=== PATIENT | female | born 1975 | race Caucasian/White ===

== ENCOUNTER 2020-12-11 23:55 | Inpatient (IN) | payer OTHER ==
[~2020-12-11] VITALS: Ht 162.6 cm; Wt 73.0 kg
[~2020-12-11 23:55] MED LIST: ACEBUTCAFT PO; ALBU90OI INH; Fluocinonide60 ML TP; LEVSOD125 PO; META800 PO; ONDA4 PO; TOPI50 PO
[2020-12-12 01:00] LABS: BASOPHILS ABSOLUTE AUTO 0.07 K/mm3 (0.00-0.23); BASOPHILS PERCENT AUTO 1 % (0-2); EOSINOPHILS ABSOLUTE AUTO 0.16 K/mm3 (0.00-0.68); EOSINOPHILS PERCENT AUTO 2 % (0-6); Hematocrit 36.3 % (33.0-51.0); Hemoglobin 11.4 g/dL (11.5-16.0); IMMATURE GRAN ABSOLUTE AUTO 0.02 K/mm3 (0.00-0.10); IMMATURE GRAN PERCENT AUTO 0 % (0-1); LYMPHOCYTES ABSOLUTE AUTO 2.28 K/mm3 (0.84-5.20); LYMPHOCYTES PERCENT AUTO 33 % (21-46); MONOCYTES ABSOLUTE AUTO 0.47 K/mm3 (0.16-1.47); MONOCYTES PERCENT AUTO 7 % (4-13); Mean Corpuscular HGB 27.1 pg (26.0-34.0); Mean Corpuscular HGB Conc 31.4 g/dL (31.5-36.5); Mean Corpuscular Volume 86 fL (80-100); NEUTROPHILS PERCENT AUTO 57 % (41-73); RDW Coefficient Variation 14.5 % (11.7-14.2); RDW Standard Deviation 45.4 fL (35.1-46.3)
[2020-12-12 01:01] LABS: Mean Platelet Volume 9.9 fL (9.1-12.4); Platelet Count 275 K/mm3 (150-400)
[2020-12-12 01:24] LABS: Alanine Aminotransfer (ALT/SGP 13 U/L (12-78); Albumin, Blood 3.4 g/dL (3.4-5.0); Alk Phos 34 U/L (50-136); Anion Gap 7 mmol/L (6-16); Aspartate Aminotrans (AST/SGOT 19 U/L (12-37); Bilirubin, Total 0.3 mg/dL (0.1-1.0); Blood Urea Nitrogen 20 mg/dL (8-24); Bun/Creatinine Ratio 25.7 (12.0-20.0); CO2, Blood 16 mmol/L (21-32); Calcium, Blood 7.6 mg/dL (8.5-10.1); Chloride, Blood 115 mmol/L (98-108); Creatinine, Blood 0.78 mg/dL (0.40-1.00); Globulin, Blood 3.4 g/dL (2.2-4.0); Glomerular Filtration Rate >60 (60-); Glucose, Blood 95 mg/dL (70-99); Potassium, Blood 3.7 mmol/L (3.5-5.5); Sodium, Blood 138 mmol/L (136-145); Total Protein, Blood 6.8 g/dL (6.4-8.2)
[2020-12-12 04:22] LABS: D-Dimer, Quantitative 0.49 mg/L FEU (0.00-0.52)
[2020-12-12] MEDS ORDERED: BREO ELLIPTA 21 EAC1 INH (09:12)
[2020-12-12] MEDS ORDERED: ESZO1 PO (09:13)
[2020-12-12] MEDS ORDERED: FAMO40 PO (09:34)
[2020-12-12] MEDS ORDERED: FLUO.025TO TOP (09:35)
[2020-12-12] MEDS ORDERED: LEVSOD100 PO (09:46)
[2020-12-12] MEDS ORDERED: LORA.5 PO (09:47)
[2020-12-12] MEDS ORDERED: NORT10 PO (09:47)
[2020-12-12] MEDS ORDERED: META800 PO (09:47)
[2020-12-12] MEDS ORDERED: OMEP20ER PO (09:48)
[2020-12-12] MEDS ORDERED: ONDA4ODT SL (09:50)
[2020-12-12] MEDS ORDERED: Adipex-P37.5 MG PO (09:51)
[2020-12-12] MEDS ORDERED: PRED FORTE5 ML BOTHEYES (09:52)
[2020-12-12] MEDS ORDERED: Ranitidine HCl150 M1 PO (09:52)
[2020-12-12] MEDS ORDERED: RIZATRIPTAN10 MG SL (09:55)
[2020-12-12] MEDS ORDERED: TRANSDERM-SCOP1 EAC5 TD (09:55)
[2020-12-12] MEDS ORDERED: PSEUDOEPHEDRINE30 M1 PO (09:56)
[2020-12-12] MEDS ORDERED: DICL25ER PO (09:58)
[2020-12-12 10:30] LABS: Creatine Kinase MB 2.1 ng/mL (0.0-3.6); Creatine Kinase MB Index 1.7 (0.0-4.0)
[2020-12-12 10:41] LABS: Troponin I 0.956 ng/mL (0.000-0.040)
[2020-12-12 17:06] LABS: Creatine Kinase MB Index 2.7 (0.0-4.0)
[2020-12-12 17:20] LABS: Troponin I 1.23 ng/mL (0.000-0.040)
--- NOTE | 2020-12-12 17:48 | NUR ---
SHIFT SUMMARY PT COMPLAINED OF CHEST PAIN THIS MORNING, CARDIOLOGY CONSULT CALLED TO DR. COON AND PHYSICIAN AWARE. HEPARIN AND MAINTENANCE FLUIDS RUNNING PER EMAR. PT TAKEN TO MANAGER SITE, HEPARIN STOPPED FOR PROCEDURE. PT RETURNED FROM PROCEDURE WITH TR BAND AND ARMBOARD IN PLACE. NO BLEEDING NOTED, HEMATOMA NOTED PROXIMAL TO TR BAND. TR BAND RECOVERED, NO ACUTE EVENTS THE REST OF SHIFT, VSS. PT ALERT AND ORIENTED, ABLE TO AMBULATE INDEPENDENTLY IN ROOM.
--- NOTE | 2020-12-12 18:17 | NUR ---
UPDATE SOME DISCHARGE NOTED FROM RADIAL SITE, AIR REAPPLIED INTO TR BAND, BLEEDING STOPPED, WCTM.
--- NOTE | 2020-12-12 22:04 | NUR ---
TR BAND TR BAND WITH 4MLS AIR AT BEGINNING OF SHIFT. DAY SHIFT RN REPORTS HEMATOMA FORMATION; HENCE REINFLATION. NO CHANGES NOTED PER DAY SHIFT NURSE AT SHIFT CHANGE. 1999 TR BAND COMPLETELY DEFLATED. 2099 TR BAND OFF. SITE CLEANED. OPSITE PLACED. NO CHANGES IN HEMATOMA NOTED. TENDER. DARK PURPLE. MARBLE SIZE.
--- NOTE | 2020-12-13 04:55 | NUR ---
SHIFT SUMMARY PT AXO. IN SR. VSS. RW TR BAND W/ 4MLS AT BEGINNING OF SHIFT. HAS BEEN SUCCESFULLY PULLED OFF, SITE CLEANED. HEMATOMA DECREASING IN SIZE AND RIGIDITY. SEVERE BRUSING, [id number] NOTED PROXIMAL TO TR BAND. PT STATES LESSENING PAIN TO THIS AREA. PT HAS DENIED CP THIS SHIFT. ARMBOARD REMAINS IN [place]. 1L NS INFUSION COMPLETE. PT VOIDING WELL. PT SLEEPING FOR MAJORITY OF SHIFT. USES CALL LIGHT APPROPRIATELY.
--- NOTE | 2020-12-13 10:59 | NUR ---
Echocardiogram completed.
--- NOTE | 2020-12-13 16:46 | NUR ---
Update 12/13/20: Per chart review with Dr. Garcia this am, pt. potentially appropriate for discharge today. Pt. scheduled for hospital F/U on 12/16/20 at 4pm with Ayla Cullen. Pt. given discharge letter with appointment date/time noted. Pt. has a strong support system at home. Denied concerns regarding discharge, though she is aware that it is not quite time for discharge yet. Pt. C/O chest pain earlier. Dr. Garcia continuing to monitor pt.
--- NOTE | 2020-12-13 16:57 | NUR ---
PATIENT COMPLAINED OF MIGRAINE THIS MORNING, DR. BURROUGHS GAVE ORDERS FOR MAXALT. ABOUT 30 MINUTES AFTER BEING GIVEN MAXALT, PT COMPLAINED OF CHEST PAIN RADIATING TO BACK. DR. BURROUGHS NOTIFIED, INSTRUCTED TO GIVE NITRO. NITRO GIVEN PER EMAR, PT ENDORSED RELIEF. NO INCIDENTS OF CHEST PAIN FOR THE REST OF THE SHIFT. PT IS ALERT AND ORIENTED, ABLE TO AMBULATE IN THE ROOM. ARMBOARD IN PLACE. HEMATOMA NOTED AT R. RADIAL SITE, NO NEW DISCHARGE NOTED. VSS, ON ROOM AIR AND TOLERATING WELL. PENDING DISCHARGE, WCTM.
[2020-12-13] MEDS ORDERED: ATOR40TA PO (19:34)
[2020-12-13] MEDS ORDERED: ASPI81CH PO (19:34)
[2020-12-13] MEDS ORDERED: CLOP75 PO (19:35)
[2020-12-13] MEDS ORDERED: NITR.4SL (19:36)
--- NOTE | 2020-12-13 19:55 | NUR ---
DISCHARGE PAPERWORK REVEIWED WITH PT AND HER AT BEDSIDE, INCLUDING MEDICATION LIST, NEW PRESCRIPTIONS, EDUCATION AND FOLLOW UP APPOINTMENTS. PT STATES SHE HAS NO QUESTIONS AND VERBALIZES UNDERSTANDING OF INSTRUCTIONS. IV REMOVED. RADIAL SITE ACCESS AFTER CARE REVIEWED, PT VERBALIZES UNDERSTANDING OF INSTRUCTIONS. STENT CARD GIVEN TO PT. ALL BELONGINGS SENT HOME WITH PT. NO FURTHER DISCHARGE NEEDS IDENTIFIED.
== END 2020-12-13 20:04 | disposition home or self-care (01) | DRG 246 ==
LOC: ER 23:55 → PCU 12-12 02:35
PROVIDERS: Emergency Medicine; ADMIT Internal Medicine
PROC: 027034Z Dilation of Coronary Artery, One Artery with Drug-eluting Intraluminal Device, Percutaneous Approach (ICD-10-PCS; principal; 2020-12-12)
PROC: 02703ZZ Dilation of Coronary Artery, One Artery, Percutaneous Approach (ICD-10-PCS; 2020-12-12)
PROC: 4A023N7 Measurement of Cardiac Sampling and Pressure, Left Heart, Percutaneous Approach (ICD-10-PCS; 2020-12-12)
PROC: 4A12XSH Monitoring of Cardiac Vascular Perfusion using Indocyanine Green Dye, External Approach (ICD-10-PCS; 2020-12-12)
PROC: B2111ZZ Fluoroscopy of Multiple Coronary Arteries using Low Osmolar Contrast (ICD-10-PCS; 2020-12-12)
PROC: 4A033BC Measurement of Arterial Pressure, Coronary, Percutaneous Approach (ICD-10-PCS; 2020-12-12)
PROC: B2151ZZ Fluoroscopy of Left Heart using Low Osmolar Contrast (ICD-10-PCS; 2020-12-12)
DX: I21.4 Non-ST elevation (NSTEMI) myocardial infarction (principal); I25.42 Coronary artery dissection; E03.9 Hypothyroidism, unspecified; J45.909 Unspecified asthma, uncomplicated; E78.5 Hyperlipidemia, unspecified; I10 Essential (primary) hypertension; I48.91 Unspecified atrial fibrillation; E66.3 Overweight; I25.10 Atherosclerotic heart disease of native coronary artery without angina pectoris; F41.9 Anxiety disorder, unspecified; G47.00 Insomnia, unspecified; G43.909 Migraine, unspecified, not intractable, without status migrainosus; Z88.0 Allergy status to penicillin; Z88.1 Allergy status to other antibiotic agents; Z98.890 Other specified postprocedural states; Z79.899 Other long term (current) drug therapy; Z79.51 Long term (current) use of inhaled steroids; Z68.27 Body mass index [BMI] 27.0-27.9, adult
CPT/HCPCS: 36415; 71046; 76937; 80053; 82550; 82553; 83690; 84484; 85025; 85347; 85379; 85730; 93005; 93010; 93306; 93458; 93571; 93572; 94760; 99152; 99153; 99285-25; A9270; C1725; C1769; C1874; C1887; C1894; C9600; G0378; J1644; J2250; J2405; J3010; J7030; J7040; J7050; Q9967

== ENCOUNTER → 2021-01-21 | Outpatient (CLI) | payer OTHER ==
[~2021-01-21] MED LIST changes: +ASPI81CH PO; +ATOR40TA PO; +Adipex-P37.5 MG PO; +BREO ELLIPTA 21 EAC1 INH; +CLOP75 PO; +DICL25ER PO; +ESZO1 PO; +FAMO40 PO; +FLUO.025TO TOP; +LEVSOD100 PO; +LORA.5 PO; +NITR.4SL; +NORT10 PO; +OMEP20ER PO; +ONDA4ODT SL; +PRED FORTE5 ML BOTHEYES; +PSEUDOEPHEDRINE30 M1 PO; +RIZATRIPTAN10 MG SL; +Ranitidine HCl150 M1 PO; +TRANSDERM-SCOP1 EAC5 TD
== END | disposition home or self-care (01) ==
LOC: LAB 10:48 → LAB SHORT 10:48
DX: R07.9 Chest pain, unspecified (principal)
CPT/HCPCS: 84484; 85379

== ENCOUNTER → 2022-12-30 | Outpatient (CLI) | payer OTHER | END | disposition home or self-care (01) | LOC: LAB SHORT 17:52 → LAB 17:52 | DX: N39.0 Urinary tract infection, site not specified (principal) | CPT/HCPCS: 87077; 87086; 87186 ==

== ENCOUNTER → 2023-05-22 | Outpatient (CLI) | payer OTHER | END | disposition home or self-care (01) | LOC: LAB 10:02 → LAB SHORT 10:02 | DX: N39.0 Urinary tract infection, site not specified (principal) | CPT/HCPCS: 87077; 87086; 87186 ==

== ENCOUNTER → 2023-07-10 | Outpatient (CLI) | payer OTHER | END | disposition home or self-care (01) | LOC: LAB SHORT 11:23 → LAB 11:23 | DX: N39.0 Urinary tract infection, site not specified (principal) | CPT/HCPCS: 87077; 87086; 87186 ==

== ENCOUNTER → 2025-02-17 | Outpatient (CLI) | payer OTHER ==
[2025-02-17 18:19] LABS: BASOPHILS ABSOLUTE AUTO 0.11 K/mm3 (0.00-0.23); BASOPHILS PERCENT AUTO 2 % (0-2); EOSINOPHILS ABSOLUTE AUTO 0.43 K/mm3 (0.00-0.68); EOSINOPHILS PERCENT AUTO 7 % (0-6); Hematocrit 34.8 % (33.0-51.0); Hemoglobin 11.2 g/dL (11.5-16.0); IMMATURE GRAN ABSOLUTE AUTO 0.01 K/mm3 (0.00-0.10); IMMATURE GRAN PERCENT AUTO 0 % (0-1); LYMPHOCYTES ABSOLUTE AUTO 2.71 K/mm3 (0.84-5.20); LYMPHOCYTES PERCENT AUTO 41 % (21-46); MONOCYTES ABSOLUTE AUTO 0.58 K/mm3 (0.16-1.47); MONOCYTES PERCENT AUTO 9 % (4-13); Mean Corpuscular HGB Conc 32.2 g/dL (31.5-36.5); Mean Corpuscular Volume 83 fL (80-100); NEUTROPHILS ABSOLUTE AUTO 2.75 K/mm3 (1.96-9.15); NEUTROPHILS PERCENT AUTO 42 % (41-73); NRBC ABSOLUTE 0.00 K/mm3 (0.00-0.02); NRBC Auto 0.0 /100 WBC (0.0-0.2); Platelet Count 437 K/mm3 (150-400); RDW Coefficient Variation 15.3 % (11.7-14.2); RDW Standard Deviation 45.1 fL (35.1-46.3)
[2025-02-17 18:30] LABS: Alanine Aminotransfer (ALT/SGP 18.0 U/L (12-78); Albumin, Blood 3.8 g/dL (3.4-5.0); Albumin/Globulin Ratio 1.2 (0.8-1.8); Anion Gap 14.0 mmol/L (3-11); Aspartate Aminotrans (AST/SGOT 12.0 U/L (12-37); Bilirubin, Total 0.2 mg/dL (0.1-1.0); Blood Urea Nitrogen 25.0 mg/dL (8-24); CO2, Blood 22.0 mmol/L (21-32); Calcium, Blood 8.8 mg/dL (8.5-10.1); Chloride, Blood 107.0 mmol/L (98-108); Creatinine, Blood 1.01 mg/dL (0.40-1.00); Globulin, Blood 3.3 g/dL (2.2-4.0); Glucose, Blood 105.0 mg/dL (70-99); Potassium, Blood 3.6 mmol/L (3.5-5.5); Sodium, Blood 139.0 mmol/L (136-145); Total Protein, Blood 7.1 g/dL (6.4-8.2)
== END | disposition home or self-care (01) ==
LOC: LAB SHORT 18:15 → LAB 18:15
PROVIDERS: Emergency Medicine
DX: R07.9 Chest pain, unspecified (principal)
CPT/HCPCS: 80053; 83880; 84484; 85025; 85379